=== PATIENT | male | born 1995 | race Caucasian/White ===

== ENCOUNTER 2021-03-18 16:25 | Emergency (ER) | payer OTHER ==
[2021-03-18] MEDS ORDERED: Bacitracin Oint 1 GM U/D Packet TOP ONE (17:34)
[2021-03-18] MEDS ORDERED: Ketorolac 60 MG/2 ML SDV IM ONE (17:35)
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
== END 2021-03-18 18:50 | disposition home or self-care (01) ==
LOC: MW.ED 16:25
DX: T20.20XA Burn of second degree of head, face, and neck, unspecified site, initial encounter (principal)
CPT/HCPCS: 16020; 96372; 99283; J1885